=== PATIENT | male | born 1995 | race African-American/Black ===

== ENCOUNTER 2016-07-24 11:01 | Emergency (ER) | payer SELFPAY ==
[2016-07-24] MEDS ORDERED: AMOXICILLIN TR/POT CLAVULANATE 500-125 MG TAB PO ONE (11:39)
[2016-07-24] MEDS ORDERED: DIPH/PERTUSS(ACELL)/TETANUS VAC/PF 0.5 ML SYR (>=10YO) IM ONE (11:39)
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
[2016-07-24 12:23] VITALS: BP 122/61
== END 2016-07-24 12:24 | disposition home or self-care (01) ==
LOC: ER 11:01
DX: S91.331A Puncture wound without foreign body, right foot, initial encounter (principal); W45.0XXA Nail entering through skin, initial encounter; Y92.009 Unspecified place in unspecified non-institutional (private) residence as the place of occurrence of the external cause; F17.200 Nicotine dependence, unspecified, uncomplicated; Z23 Encounter for immunization
CPT/HCPCS: 90471; 90715; 99282

== ENCOUNTER 2018-08-11 12:33 | Emergency (ER) | payer SELFPAY ==
[2018-08-11] MEDS ORDERED: AMOXICILLIN TR/POT CLAVULANATE 500-125 MG TAB PO ONE (13:03)
[2018-08-11] MEDS ORDERED: AMOXICILLIN TRIHYD 250 MG CAPSULE PO ONE (13:03)
[2018-08-11] MEDS ORDERED: IBUPROFEN 800 MG TABLET PO ONE (13:03)
[2018-08-11] MEDS ORDERED: HYDROCODONE/ACETAMINOPHEN 5-325 MG TABLET PO ONE (13:03)
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
[2018-08-11 14:28] VITALS: BP 149/59
== END 2018-08-11 14:34 | disposition home or self-care (01) ==
LOC: ER 12:33
DX: S02.609B Fracture of mandible, unspecified, initial encounter for open fracture (principal); R68.84 Jaw pain; R22.0 Localized swelling, mass and lump, head; Y04.2XXA Assault by strike against or bumped into by another person, initial encounter; F17.200 Nicotine dependence, unspecified, uncomplicated
CPT/HCPCS: 99283; 70486; 72125; J3490

== ENCOUNTER 2018-10-11 22:54 | Emergency (ER) | payer SELFPAY ==
[2018-10-12 00:56] LABS: APPEARANCE,URINE CLOUDY; BILIRUBIN,URINE NEGATIVE (NEGATIVE); CALCIUM OXALATE CRYSTALS,URINE MANY /HPF; COLOR,URINE YELLOW; GLUCOSE, URINE NEGATIVE (NEGATIVE); KETONES,URINE NEGATIVE (NEGATIVE); LEUKOCYTE ESTERASE,URINE NEGATIVE (NEGATIVE); NITRITE,URINE NEGATIVE (NEGATIVE); PROTEIN,URINE NEGATIVE (NEGATIVE); URINE SPECIFIC GRAVITY 1.023
[2018-10-12] MEDS ORDERED: CEFTRIAXONE INJ 250 MG VIAL IM ONE (01:38)
[2018-10-12] MEDS ORDERED: LIDOCAINE 1% INJ-PF (10 MG/ML) 30 ML SDV INJ ONE (01:38)
[2018-10-12] MEDS ORDERED: AZITHROMYCIN 1 GM SUSP PACKET PO ONE (01:39)
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
[2018-10-12 02:03] LABS: CHLAM PCR NOT DETECTED (NOT DETECT)
== END 2018-10-12 02:15 | disposition home or self-care (01) ==
LOC: ER 22:54
DX: R30.9 Painful micturition, unspecified (principal); R39.15 Urgency of urination; Z20.2 Contact with and (suspected) exposure to infections with a predominantly sexual mode of transmission
CPT/HCPCS: 99283; 96372; 81001; 87491; 87591; J3490; Q0144; J0696

== ENCOUNTER 2018-12-25 15:44 | Emergency (ER) | payer OTHER ==
[2018-12-25 15:56] VITALS: BP 133/70
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
[2018-12-25] MEDS ORDERED: NAPROXEN 250 MG TABLET PO ONE (18:09)
== END 2018-12-25 18:40 | disposition home or self-care (01) ==
LOC: ER 15:44
DX: S16.1XXA Strain of muscle, fascia and tendon at neck level, initial encounter (principal); M54.2 Cervicalgia; M62.838 Other muscle spasm; V49.40XA Driver injured in collision with unspecified motor vehicles in traffic accident, initial encounter
CPT/HCPCS: 99283

== ENCOUNTER 2019-10-04 08:19 | Emergency (ER) | payer OTHER ==
[2019-10-04] MEDS ORDERED: AZITHROMYCIN 1 GM SUSP PACKET PO ONE (08:32)
[2019-10-04] MEDS ORDERED: LIDOCAINE 1% INJ-PF (10 MG/ML) 30 ML SDV NEB ONE (08:32)
[2019-10-04] MEDS ORDERED: CEFTRIAXONE INJ 250 MG VIAL IM ONE (08:32)
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
[2019-10-04 09:27] VITALS: BP 155/83
[2019-10-04 11:00] LABS: CHLAM PCR DETECTED (NOT DETECT)
== END 2019-10-04 09:27 | disposition home or self-care (01) ==
LOC: ER 08:19
DX: Z20.2 Contact with and (suspected) exposure to infections with a predominantly sexual mode of transmission (principal)
CPT/HCPCS: 99283; 96372; 36415; 86592; 87491; 87591; J3490; Q0144; J0696